=== PATIENT | female | born 1980 | race Two or more races ===

== ENCOUNTER 2022-04-09 15:24 | Emergency (ER) | payer OTHER ==
[~2022-04-09] VITALS: Ht 154.9 cm; Wt 83.9 kg
[2022-04-09] MEDS ORDERED: NORFLEX100MG PO (18:43)
[2022-04-09] MEDS ORDERED: KETO10TA2 PO (18:43)
== END 2022-04-09 18:51 | disposition home or self-care (01) ==
LOC: ER 15:24
DX: R07.89 Other chest pain (principal); U09.9 Post COVID-19 condition, unspecified